=== PATIENT | male | born 1980 | race Caucasian/White ===

== ENCOUNTER 2019-12-15 19:52 | Emergency (ER) | payer BC, OTHER ==
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
[2019-12-15 21:01] VITALS: BP 135/90; O2SAT 96
[2019-12-15 21:05] VITALS: TEMP 97.1
== END 2019-12-15 21:10 | disposition home or self-care (01) ==
LOC: ER 19:52
DX: S20.211A Contusion of right front wall of thorax, initial encounter (principal); S83.91XA Sprain of unspecified site of right knee, initial encounter; S40.011A Contusion of right shoulder, initial encounter; V00.141A Fall from scooter (nonmotorized), initial encounter; Z88.0 Allergy status to penicillin; Y92.9 Unspecified place or not applicable